=== PATIENT | male | born 1945 | race African-American/Black ===

== ENCOUNTER 2020-11-05 21:05 | Inpatient (IN) ==
[2020-11-05] MEDS ORDERED: ACETAMINOPHEN 500 MG TABLET ONE (21:52)
[2020-11-05 21:56] LABS: Basophils % 0.2 % (0.0-0.8); Eosinophils # 0.1 10*3/uL (0.0-0.87); Eosinophils % 0.7 % (0.00-10.9); Hematocrit 44.8 VOL% (42.0-52.0); Hemoglobin 14.6 GM/DL (14.0-18.0); Immature Granulocytes % 0.7 %; Immature Granulocytes Absolute 0.06 #; Lymphocytes # 0.8 10*3/uL (1.4-4.0); Lymphocytes % 8.9 % (21.2-54.2); Mean Corpuscular HGB Conc 32.6 GM/DL (32-36); Mean Corpuscular Volume 93.1 FL (87-102); Monocytes % 8.7 % (1.7-12.7); Neutrophils % 80.8 % (38.7-73.9); Platelet Count 251 T/CUMM (130-400); Red Blood Count 4.81 MC/CUMM (3.8-5.5); Red Cell Distribution Width 14.6 % (9.3-17.3); White Blood Count 8.6 T/CUMM (4-12)
[2020-11-05] MEDS ORDERED: FUROSEMIDE 40 MG/4 ML VIAL IV STA (21:58)
[2020-11-05] MEDS ORDERED: ACETAMINOPHEN 500 MG TABLET PO STA (22:00)
[2020-11-05 22:19] LABS: Alanine Aminotransferase 21 U/L (16-61); Albumin 3.1 G/DL (3.4-5.0); Alkaline Phosphatase 85 U/L (45-117); Aspartate Amino Transferase 25 U/L (0-37); Bilirubin,Total < 0.39 MG/DL (0.2-1.0); Blood Urea Nitrogen 25 MG/DL (7-18); Calcium 8.5 MG/DL (8.5-10.1); Carbon Dioxide 24 MMOL/L (21-32); Estimated Glom Filtration Rate 53 ML/MIN; Glucose 109 MG/DL (74-106); Osmolality,Calculated 283.4 MOS/KG (273-304); Potassium 4.2 MMOL/L (3.5-5.1); Sodium 140 MMOL/L (136-145); Total Protein 7.6 G/DL (6.4-8.3)
[2020-11-05] MEDS ORDERED: cefTRIAXone 1,000 MG in SODIUM CHLORIDE 0.9% 100 ML IV STA (23:45)
[2020-11-05] MEDS ORDERED: AZITHROMYCIN INJ 500 MG in SODIUM CHLORIDE 0.9% 250 ML IV STA (23:45)
[2020-11-05] MEDS ORDERED: ALBUTEROL/IPRATROPIUM 3 ML NEB RESP TX STA (23:56)
[2020-11-06] MEDS ORDERED: methylPREDNISolone SOD SUC 125 MG/2 ML VIAL ONE (01:12)
[2020-11-06] MEDS ORDERED: methylPREDNISolone SOD SUC 125 MG/2 ML VIAL IV STA (01:19)
[2020-11-06 01:35] LABS: Partial Thromboplastin Time 38.3 SECS (23.9-33.8)
[2020-11-06] MEDS ORDERED: SODIUM CHLORIDE 0.9% 1,000 ML IV STA (01:40)
[2020-11-06 02:27] LABS: INR 1.5; PT Patient Result 17.5 SECS (9.8-11.9)
[2020-11-06] MEDS ORDERED: DEXTROSE 50% 25 GM/50 ML VIAL IV PRN (02:50)
[2020-11-06] MEDS ORDERED: GLUCAGON 1 MG VIAL IM PRN (02:50)
[2020-11-06] MEDS ORDERED: ACETAMINOPHEN 325 MG TABLET PO PRN (02:50)
[2020-11-06] MEDS ORDERED: ONDANSETRON 4 MG/2 ML VIAL IV PRN (02:50)
[2020-11-06] MEDS ORDERED: ENOXAPARIN 40 MG/0.4 ML SYRINGE SUBCUT SCH (03:00)
[2020-11-06] MEDS: ALBUTEROL/IPRATROPIUM 3 ML NEB RESP TX SCH ×3 (06:59→19:33)
[2020-11-06 07:35] LABS: Basophils % 0.1 % (0.0-0.8); Hematocrit 43.1 VOL% (42.0-52.0); Hemoglobin 14.1 GM/DL (14.0-18.0); Immature Granulocytes % 0.9 %; Lymphocytes # 0.7 10*3/uL (1.4-4.0); Lymphocytes % 5.9 % (21.2-54.2); Mean Corpuscular HGB Conc 32.7 GM/DL (32-36); Mean Corpuscular Volume 92.9 FL (87-102); Mean Platelet Volume 9.9 FL (9.6-12.0); Neutrophils % 89.1 % (38.7-73.9); Platelet Count 232 T/CUMM (130-400); Red Blood Count 4.64 MC/CUMM (3.8-5.5); Red Cell Distribution Width 14.8 % (9.3-17.3); White Blood Count 11.2 T/CUMM (4-12)
[2020-11-06 07:54] LABS: Band Neutrophils 3 % (0-10); Hypochromasia Slight; Lymphocytes 2 % (20-55); Microcytosis Slight; Platelet Estimate Adequate; Segmented Neutrophils 90 % (50-85); Total Cells Counted 100
[2020-11-06] MEDS ORDERED: FUROSEMIDE 20 MG TABLET PO SCH (08:00)
[2020-11-06 08:01] LABS: Bilirubin,Total 0.4 MG/DL (0.2-1.0); Calcium 8.6 MG/DL (8.5-10.1); Osmolality,Calculated 279.8 MOS/KG (273-304); Potassium 4.5 MMOL/L (3.5-5.1); Total Protein 7.7 G/DL (6.4-8.3)
[2020-11-06] MEDS: FERROUS SULFATE 325 MG TABLET PO SCH ×3 (09:00→21:49)
[2020-11-06] MEDS: APIXABAN 5 MG TABLET PO SCH ×2 (09:00→21:48)
[2020-11-06] MEDS: PANTOPRAZOLE 40 MG TABLET PO SCH (09:00)
[2020-11-06] MEDS: ATORVASTATIN 20 MG TABLET PO SCH (09:00)
[2020-11-06] MEDS ORDERED: OLMESARTAN 20 MG TABLET PO SCH (09:00)
[2020-11-06] MEDS: DILTIAZEM CD 180 MG CAPSULE PO SCH (09:00)
[2020-11-06] MEDS: methylPREDNISolone SOD SUC 40 MG/1 ML VIAL IV SCH ×3 (14:48→21:52)
[2020-11-06] MEDS: cefTRIAXone 1,000 MG in SYRINGE 1 EACH IV SCH (21:48)
[2020-11-07] MEDS: ALBUTEROL/IPRATROPIUM 3 ML NEB RESP TX SCH ×4 (00:17→18:30)
[2020-11-07] MEDS: methylPREDNISolone SOD SUC 40 MG/1 ML VIAL IV SCH ×3 (05:50→22:05)
[2020-11-07] MEDS: ATORVASTATIN 20 MG TABLET PO SCH (08:50)
[2020-11-07] MEDS: APIXABAN 5 MG TABLET PO SCH ×2 (08:50→20:38)
[2020-11-07] MEDS: FERROUS SULFATE 325 MG TABLET PO SCH ×3 (08:50→20:38)
[2020-11-07] MEDS: PANTOPRAZOLE 40 MG TABLET PO SCH (08:50)
[2020-11-07] MEDS: cefTRIAXone 1,000 MG in SYRINGE 1 EACH IV SCH (22:02)
[2020-11-08] MEDS: ALBUTEROL/IPRATROPIUM 3 ML NEB RESP TX SCH ×4 (00:49→19:41)
[2020-11-08] MEDS: methylPREDNISolone SOD SUC 40 MG/1 ML VIAL IV SCH ×3 (05:54→21:12)
[2020-11-08] MEDS: PANTOPRAZOLE 40 MG TABLET PO SCH (09:10)
[2020-11-08] MEDS: FERROUS SULFATE 325 MG TABLET PO SCH ×3 (09:10→20:33)
[2020-11-08] MEDS: APIXABAN 5 MG TABLET PO SCH ×2 (09:10→20:33)
[2020-11-08] MEDS: DILTIAZEM CD 180 MG CAPSULE PO SCH (09:10)
[2020-11-08] MEDS: ATORVASTATIN 20 MG TABLET PO SCH (09:10)
[2020-11-08] MEDS: cefTRIAXone 1,000 MG in SYRINGE 1 EACH IV SCH (21:12)
[2020-11-09] MEDS: ALBUTEROL/IPRATROPIUM 3 ML NEB RESP TX SCH ×5 (00:43→23:15)
[2020-11-09] MEDS: methylPREDNISolone SOD SUC 40 MG/1 ML VIAL IV SCH ×3 (05:11→21:04)
[2020-11-09 06:40] LABS: Calcium 8.6 MG/DL (8.5-10.1); Osmolality,Calculated 290.7 MOS/KG (273-304); Potassium 3.8 MMOL/L (3.5-5.1)
[2020-11-09] MEDS: PANTOPRAZOLE 40 MG TABLET PO SCH (08:01)
[2020-11-09] MEDS: APIXABAN 5 MG TABLET PO SCH ×2 (08:01→21:04)
[2020-11-09] MEDS: ATORVASTATIN 20 MG TABLET PO SCH (08:01)
[2020-11-09] MEDS: FERROUS SULFATE 325 MG TABLET PO SCH ×3 (08:01→21:04)
[2020-11-09] MEDS: AZITHROMYCIN 250 MG TABLET PO SCH (21:04)
[2020-11-09] MEDS: cefTRIAXone 1,000 MG in SYRINGE 1 EACH IV SCH (21:05)
[2020-11-10] MEDS: ALBUTEROL/IPRATROPIUM 3 ML NEB RESP TX SCH ×6 (02:51→23:30)
[2020-11-10] MEDS: methylPREDNISolone SOD SUC 40 MG/1 ML VIAL IV SCH ×3 (05:24→21:59)
[2020-11-10 06:35] LABS: Calcium 8.4 MG/DL (8.5-10.1); Osmolality,Calculated 288.7 MOS/KG (273-304); Potassium 4.3 MMOL/L (3.5-5.1)
[2020-11-10] MEDS: ATORVASTATIN 20 MG TABLET PO SCH (08:29)
[2020-11-10] MEDS: APIXABAN 5 MG TABLET PO SCH ×2 (08:29→21:59)
[2020-11-10] MEDS: PANTOPRAZOLE 40 MG TABLET PO SCH (08:29)
[2020-11-10] MEDS: FERROUS SULFATE 325 MG TABLET PO SCH ×3 (08:29→21:59)
[2020-11-10] MEDS: DILTIAZEM CD 180 MG CAPSULE PO SCH (08:29)
[2020-11-10] MEDS ORDERED: hydrALAZINE 20 MG/1 ML VIAL IV PRN (13:19)
[2020-11-10] MEDS: METOPROLOL TARTRATE 5 MG/5 ML VIAL IV SCH ×2 (13:33→17:23)
[2020-11-10] MEDS: AZITHROMYCIN 250 MG TABLET PO SCH (21:59)
[2020-11-10] MEDS: cefTRIAXone 1,000 MG in SYRINGE 1 EACH IV SCH (21:59)
[2020-11-11] MEDS: METOPROLOL TARTRATE 5 MG/5 ML VIAL IV SCH ×3 (01:50→11:27)
[2020-11-11] MEDS: ALBUTEROL/IPRATROPIUM 3 ML NEB RESP TX SCH ×3 (03:43→11:30)
[2020-11-11] MEDS: methylPREDNISolone SOD SUC 40 MG/1 ML VIAL IV SCH ×2 (05:49→14:28)
[2020-11-11 05:52] LABS: Calcium 8.5 MG/DL (8.5-10.1); Osmolality,Calculated 291.7 MOS/KG (273-304); Potassium 4.6 MMOL/L (3.5-5.1)
[2020-11-11] MEDS: APIXABAN 5 MG TABLET PO SCH (09:09)
[2020-11-11] MEDS: FERROUS SULFATE 325 MG TABLET PO SCH ×2 (09:09→14:37)
[2020-11-11] MEDS: ATORVASTATIN 20 MG TABLET PO SCH (09:10)
[2020-11-11] MEDS: PANTOPRAZOLE 40 MG TABLET PO SCH (09:10)
[2020-11-11 12:12] VITALS: BP 168/103
[2020-11-11] MEDS ORDERED: LEVOFLOXACIN 750 MG TABLET PO STA (16:05)
== END 2020-11-11 16:30 | disposition home or self-care (01) | DRG 190 ==
LOC: EDUNIT# → EDBD → N.ED 21:05 → SUATTDRO 11-06 02:50 → N.EDINP 11-06 02:50 → N.5E 11-06 13:44
PROVIDERS: ADMIT Family Medicine; ATTEND Internal Medicine